=== PATIENT | female | born 1955 | race Caucasian/White ===

== ENCOUNTER → 2024-12-27 | Outpatient (REF) | payer MEDICARE ==
[2024-12-27 18:10] LABS: APPEARANCE, URINE HAZY (CLEAR); BACTERIA, URINE AUTO NEGATIVE (NEGATIVE); BILIRUBIN, URINE AUTO NEGATIVE (NEGATIVE); BLOOD, URINE BLOOD NEGATIVE (NEGATIVE); GLUCOSE, URINE (UA) AUTO 3+ mg/dL (NEGATIVE); KETONE, URINE AUTO TRACE mg/dL (NEGATIVE); LEUKOCYTE ESTERASE, URINE AUTO NEGATIVE (NEGATIVE); NITRITE, URINE AUTO NEGATIVE (NEGATIVE); PROTEIN, URINE AUTO NEGATIVE (NEGATIVE); RBC, URINE AUTO 1 /HPF (0-3); SPECIFIC GRAVITY URINE AUTO 1.025 (1.002-1.035); SQUAMOUS EPITHELIAL CELL UR AU 5 /HPF (0-6); UROBILINOGEN, URINE AUTO 2.0 mg/dL (0.0-2.0); WBC, URINE AUTO 1 /HPF (0-3)
== END ==
LOC: M SMT 16:51
PROVIDERS: ATTEND Nurse Practitioner Family
DX: R32 Unspecified urinary incontinence (principal)

== ENCOUNTER 2025-03-27 06:18 | Day surgery (SDC) | payer MEDICARE ==
[~2025-03-27] VITALS: Ht 160 cm; Wt 100.6 kg
[~2025-03-27 06:18] MED LIST: ACET-907 PO; ALLO100T PO; AMLO1TAB24 PO; ATOR40TA75 PO; DULO1CAP6 PO; FAMO1TAB11 PO; FURO20TA2 PO; GLIP-320 PO; LEVO137T2 PO; LOSA50TA28 PO; METF10004 PO; METO50TA7 PO; MIDAZOLAM INJ 2 MG/2 ML VIAL As Ordered ONE; OMEP-173 PO; OXYB10TA23 PO; POTA-150 PO; TRAZ-252 PO
[2025-03-27] MEDS: TETRACAINE 0.5% OPHTH SOLN 4ML OS SCH (06:40)
[2025-03-27] MEDS: CYCLOPENTOLATE 1% OPHTH SOLN 2 ML BTL OS SCH (06:40)
[2025-03-27] MEDS: PHENYLEPHRINE 2.5% OPHTH SOL 2ML OS SCH (06:40)
[2025-03-27] MEDS: FLURBIPROFEN 0.03% OPHTH SOLN 2.5 ML OS SCH (06:40)
[2025-03-27] MEDS ORDERED: LR 1,000 ML IV SCH (07:00)
[2025-03-27] MEDS: LIDOCAINE 1% SDV 5 ML VIAL As Ordered ONE (07:37)
[2025-03-27] MEDS: CEFUROXIME 1 MG/0.1 ML INTRACAMERAL INJ As Ordered ONE (07:37)
[2025-03-27 07:55] VITALS: BP 119/85; TEMP 97.4; O2SAT 95
== END 2025-03-27 08:11 | disposition home or self-care (01) ==
LOC: M SDC 06:18
PROVIDERS: ATTEND Ophthalmology
DX: H25.12 Age-related nuclear cataract, left eye (principal); E11.36 Type 2 diabetes mellitus with diabetic cataract; I10 Essential (primary) hypertension; E03.9 Hypothyroidism, unspecified; E78.00 Pure hypercholesterolemia, unspecified; K21.9 Gastro-esophageal reflux disease without esophagitis; Z79.899 Other long term (current) drug therapy; Z79.84 Long term (current) use of oral hypoglycemic drugs; M10.9 Gout, unspecified; I69.359 Hemiplegia and hemiparesis following cerebral infarction affecting unspecified side; R32 Unspecified urinary incontinence; Z79.890 Hormone replacement therapy
CPT/HCPCS: 66984; J0697; J2250; J3010; V2632

== ENCOUNTER 2025-04-24 06:15 | Day surgery (SDC) | payer MEDICARE ==
[~2025-04-24] VITALS: Ht 160 cm; Wt 100.2 kg
[~2025-04-24 06:15] MED LIST changes: -MIDAZOLAM INJ 2 MG/2 ML VIAL As Ordered ONE
[2025-04-24] MEDS ORDERED: LR 1,000 ML IV SCH (07:00)
[2025-04-24] MEDS: TETRACAINE 0.5% OPHTH SOLN 4ML OD SCH (07:04)
[2025-04-24] MEDS: FLURBIPROFEN 0.03% OPHTH SOLN 2.5 ML OD SCH (07:04)
[2025-04-24] MEDS: CYCLOPENTOLATE 1% OPHTH SOLN 2 ML BTL OD SCH (07:04)
[2025-04-24] MEDS: PHENYLEPHRINE 2.5% OPHTH SOL 2ML OD SCH (07:04)
[2025-04-24] MEDS ORDERED: MIDAZOLAM INJ 2 MG/2 ML VIAL As Ordered ONE (07:07)
[2025-04-24] MEDS ORDERED: DEXTROSE 50% 50 ML SYRINGE IV PRN (07:20)
[2025-04-24] MEDS ORDERED: GLUCAGON INJ 1 MG VIAL SC PRN (07:20)
[2025-04-24] MEDS ORDERED: GLUCOSE 4 GM CHEW PO PRN (07:20)
[2025-04-24] MEDS: INSULIN LISPRO (NovoLOG) PER UNIT SC PRN (07:32)
[2025-04-24] MEDS: LIDOCAINE 1% SDV 5 ML VIAL As Ordered ONE (08:02)
[2025-04-24] MEDS: CEFUROXIME 1 MG/0.1 ML INTRACAMERAL INJ As Ordered ONE (08:02)
[2025-04-24 08:19] VITALS: BP 143/92; TEMP 97.5; O2SAT 94
== END 2025-04-24 08:46 | disposition home or self-care (01) ==
LOC: M SDC 06:15
PROVIDERS: ATTEND Ophthalmology
DX: H25.11 Age-related nuclear cataract, right eye (principal); I10 Essential (primary) hypertension; E78.5 Hyperlipidemia, unspecified; E11.9 Type 2 diabetes mellitus without complications; M10.9 Gout, unspecified; E03.9 Hypothyroidism, unspecified; K21.9 Gastro-esophageal reflux disease without esophagitis; Z86.73 Personal history of transient ischemic attack (TIA), and cerebral infarction without residual deficits; Z79.84 Long term (current) use of oral hypoglycemic drugs; Z79.899 Other long term (current) drug therapy
CPT/HCPCS: 66984; J0697; J1815; J2250; J3010; V2632